=== PATIENT | male | born 1975 | race Caucasian/White ===

== ENCOUNTER → 2016-07-07 | Outpatient (CLI) | payer OTHER ==
--- NOTE | 2016-07-07 16:20 | NM ---
Nuclear Medicine Parathyroid Imaging History: Hyperparathyroidism. Comparison: None available. Technique: 18.8 mCi of technetium 99m sestamibi was injected intravenously. Immediate and 3 hour kenneth yed imaging is performed using planar technique over the neck and upper chest. Findings: No definite focus of abnormally increased retained activity on the delayed images compared to the initial images. An equivocal asymmetric focus of uptake in the inferior left thyroid on the 30 -minute films does not persist on the delayed films. Impression: No parathyroid adenoma identified.
== END ==
LOC: FIMAGING 12:16
PROVIDERS: ATTEND Internal Medicine Endocrinology, Diabetes & Metabolism
DX: E21.3 Hyperparathyroidism, unspecified (principal)
CPT/HCPCS: 78070; A9500